=== PATIENT | male | born 1990 | race Caucasian/White ===

== ENCOUNTER 2020-01-30 03:38 | Emergency (ER) | payer BC, SELFPAY ==
--- NOTE | ~2020-01-30 | XR_ITS ---
EXAMINATION: CT abdomen pelvis wo con, XR abdomen/kub 1V DATE: 01/30/2020 04:06 (accession [id number]), 01/30/2020 04:29 (accession [id number]) INDICATION: Left flank pain TECHNIQUE: Computed tomography (CT) of the abdomen and pelvis was performed without intravenous contr ast. Automated exposure control and iterative reconstruction technique were employed. Exam dose: 131 7.67 mGy-cm total exam DLP. COMPARISON: 05/11/2017 CT abdomen pelvis FINDINGS: There is a 2 mm distal left ureteral calculus with proximal moderate left hydroureteronephr osis. No other urinary tract calculus. The distal left ureteral calculus is not detected on plain rad iographic examination. Diffuse hepatic steatosis. Splenomegaly. No hepatic, splenic, pancreatic, adrenal or renal space-occupying mass lesion is evident. The adrenal glands are normal. Normal caliber of the abdominal aorta. No intraperitoneal or retroperitoneal or pelvic mass lesion or adenopathy or ascites. Normal appendix. No bowel obstruction or intraperitoneal free air. The urinary bladder is evacuated. Included skeletal structures are unremarkable. IMPRESSION: 2 mm distal left ureteral radiographically occult calculus with proximal mild left hydro ureteronephrosis Hepatic steatosis Splenomegaly Reviewed, dictated and finalized at Location . Reviewed, dictated and finalized at location A. IMPRESSION: 2 mm distal left ureteral radiographically occult calculus with pr oximal mild left hydroureteronephrosis Hepatic steatosis Splenomegaly
[2020-01-30 03:42] VITALS: BP 153/110; PULSE 101; RESP 20; TEMP 36.4; O2SAT 100
--- NOTE | 2020-01-30 03:53 | ED.GENADULT ---
HPI - General Adult General Chief complaint: Abdominal Pain Stated complaint: L Flank Pain Time Seen by Provider: 01/30/20 03:43 Source: patient Mode of arrival: ambulatory Limitations: no limitations History of Present Illness HPI narrative: Patient is a 29-year-old male with a history of nephrolithiasis who presents for evaluation of left flank pain. Patient reports a 10-hour history of worsening left-sided flank pain, initially dull and aching, manageable at home with oral pain medication, but pain has progressed early this morning to be more severe in nature in the left flank. No radiation of pain to the testicle or suprapubic area. Patient reports nausea and 2 episodes of nonbloody, nonbilious emesis. No fever or chills. No upper abdominal pain or chest pain. Patient reports a history of nephrolithiasis, states he has been taking Flomax and pain medication at home without much relief. Patient does not currently follow with a urologist. Related Data Allergies Allergy/AdvReac Type Severity Reaction Status Date / Time No Known Allergies Allergy Unverified 01/30/20 03:45 Review of Systems Review of Systems: Narrative: CONSTITUTIONAL: Denies fever, chills, or sweats. CARDIOVASCULAR: Denies chest pain, palpitations, or edema. RESPIRATORY: Denies cough or dyspnea. GASTROINTESTINAL: Reports left flank pain, nausea and vomiting GENITOURINARY: Reports frequency, hesitancy, denies hematuria or dysuria SKIN: Denies rash or itching. MUSCULOSKELETAL: Reports left flank pain NEUROLOGIC: Denies headache, numbness, or weakness. COUNT INCLUDES THE [facility] Past Medical History Medical History (Updated 01/30/20 @ 05:55 by Swathi Arrieta MD) Nephrolithiasis Surgical History Surgical History (Updated 01/30/20 @ 03:57 by Swathi Arrieta MD) No pertinent past surgical history Social History Social History (Updated 01/30/20 @ 03:57 by Swathi Arrieta MD) Smoking status: Never smoker Alcohol intake: never Substance use: never Living arrangements: with family Gender identity (if verbalized by the patient): Male Exam Narrative: Exam Narrative: GENERAL: Awake, alert, conversant, mildly uncomfortable. HEAD: Normocephalic, atraumatic. EYES: PERRLA and EOMI. ENT: Nares clear, no rhinorrhea or epistaxis. Mucous membranes moist. NECK: Supple. CHEST: No respiratory distress, breathing even and non labored HEART: Regular rate, sinus rhythm ABDOMEN:Non distended, non tender, no suprapubic tenderness, positive left leg tenderness EXTREMITIES: Normal range of motion. No edema. SKIN: Warm, dry, no rash. No vesicles present NEURO:No focal deficits. Alert and oriented x3 Course Vital Signs Vital signs: Vital Signs Temperature 36.4 C 01/30/20 03:42 Pulse Rate 101 H 01/30/20 03:42 Respiratory Rate 20 01/30/20 03:42 Blood Pressure 153/110 H 01/30/20 03:42 Pulse Oximetry 100 01/30/20 03:42 Temperature 36.4 C 01/30/20 03:42 Pulse Rate 101 H 01/30/20 03:42 Respiratory Rate 20 01/30/20 03:42 Blood Pressure 153/110 H 01/30/20 03:42 Pulse Oximetry 100 01/30/20 03:42 Medical Decision Making MDM Narrative Medical decision making narrative: Patient presented for evaluation of left flank pain in the setting of history of nephrolithiasis. At the time of initial assessment, ABCs are intact and vital signs are stable. Patient with hypertension, also on quite a bit of pain at the time of assessment. Patient with left flank pain. No UTI. There is hematuria. Patient has mild chronic kidney disease with a creatinine of 1.7 without a previous baseline. Patient with mild leukocytosis. CT scan shows left 2 mm UVJ stone with associated hydronephrosis and stranding. Patient was given IV fluids, pain medication with much improvement in his symptoms, his repeat creatinine showed no improvement with hydration perhaps this is his baseline, patient has not seen a primary care physician in quite some time, and I would suspect t
[2020-01-30] MEDS: ONDANSETRON INJ 4 MG/2 ML VIAL IV PUSH (04:15)
[2020-01-30] MEDS: SODIUM CHLORIDE 0.9% IV 1,000 ML 999 ML IV CONT (04:15)
[2020-01-30] MEDS: MORPHINE SULFATE 4 MG/ML INJ IV PUSH (04:15)
[2020-01-30 04:27] LABS: Basophils Absolute Auto 0.1 K/mm3 (0.0-0.1); Basophils Percent Auto 0.4 % (0.2-1.2); Eosinophils Absolute Auto 0.1 K/mm3 (0-0.3); Eosinophils Percent Auto 0.5 % (0-4.4); Hematocrit 45.5 % (42.0-52.0); Hemoglobin 15.7 g/dL (14.0-18.0); Immature Granulocyte Absolute 0.06 K/mm3 (0.00-0.031); Immature Granulocyte Percent A 0.4 % (0-0.5); Lymphocytes Absolute Auto 1.64 K/mm3 (0.9-3.2); Lymphocytes Percent Auto 11.8 % (18.3-44.2); Mean Corpuscular HGB Conc 34.5 g/dl (32-36); Mean Corpuscular Hemoglobin 30.3 pg (26-34); Mean Corpuscular Volume 87.7 fl (80-100); Mean Platelet Volume 9.3 fl (7.4-10.4); Monocytes Absolute Auto 0.9 K/mm3 (0.1-0.6); Monocytes Percent Auto 6.2 % (2.6-8.5); Neutrophils Absolute Auto 11.2 K/mm3 (1.3-6.7); Neutrophils Percent Auto 80.7 % (45.5-73.1); Platelet Count Result 308 k/mm3 (150-375); Red Blood Count 5.19 M/mm3 (4.6-6.20); Red Cell Distribution Width 11.8 % (11.5-14.5); White Blood Count 13.9 K/mm3 (4.5-10.0)
[2020-01-30 04:33] LABS: Add Urine Microscopic? YES; Appearance Urine Clear (Clear); Bilirubin Urine Negative (Negative); Blood Urine 2+ (Negative); Color Urine Yellow (Yellow); Glucose Urine UA Negative (Negative); Ketones Urine Negative (Negative); Leukocyte Esterase Ur Negative LEU/UL (Negative); Mucus Urine Rare /lpf; Nitrate Urine Negative (Negative); Protein Urine Negative (Negative); Specific Grav Ur 1.021 (1.001-1.035); Squamous Epithelial Cell Urine Occasional /hpf (Few); Urobilinogen Urine Negative mg/dL (<2.0); WBC Urine 0-3 /hpf
[2020-01-30 04:48] LABS: Blood Urea Nitrogen 15 mg/dL (9-20); Calcium 8.9 mg/dL (8.4-10.2); Carbon Dioxide 23 mmol/L (22-30); Chloride 103 mmol/L (98-107); Estimated Glomerular Filt Rate 48; Glucose 128 mg/dL (75-110); Potassium 4.2 mmol/L (3.4-5.0); Sodium 136 mmol/L (137-145)
[2020-01-30 05:35] LABS: Estimated Glomerular Filt Rate 48
[2020-01-30 06:03] VITALS: BP 159/99; PULSE 70; RESP 20; O2SAT 98
== END 2020-01-30 06:04 | disposition home or self-care (01) ==
PROVIDERS: Emergency Provider Emergency Medicine
DX: N13.2 Hydronephrosis with renal and ureteral calculous obstruction (principal); K76.0 Fatty (change of) liver, not elsewhere classified; R16.1 Splenomegaly, not elsewhere classified
CPT/HCPCS: 36415; 74018; 74176; 80048; 81001; 82565; 85025; 96365; 96375; 99284; A9270; J0131; J2270; J2405; J7030

== ENCOUNTER 2021-10-15 19:37 | Emergency (ER) | payer SELFPAY ==
[2021-10-15 19:55] VITALS: BP 128/87; PULSE 99; RESP 18; TEMP 36.2; O2SAT 99
--- NOTE | 2021-10-15 21:08 | PC.NURSE ---
Pt exits ED prior to seeing provider, no sign of any kind of distress at this time.
== END 2021-10-16 04:34 | disposition left against medical advice (07) ==
LOC: ANHED 21:16
DX: R10.9 Unspecified abdominal pain (principal)
CPT/HCPCS: 99199

== ENCOUNTER 2021-12-26 03:24 | Emergency (ER) | payer SELFPAY ==
--- NOTE | ~2021-12-26 | XR_ITS ---
EXAMINATION: XR abdomen/kub 1V DATE: 12/26/2021 04:55 INDICATION: Kidney stone. TECHNIQUE: A supine view of the abdomen on 3 radiographs was obtained. COMPARISON: CT abdomen and pelvis 12/26/2021 FINDINGS: There are no dilated loops of bowel. There is no urolithiasis. IMPRESSION: 1. No urolithiasis. Reviewed, dictated and finalized at location A. IMPRESSION: 1. No urolithiasis.
--- NOTE | ~2021-12-26 | CT_ITS ---
EXAMINATION: CT abdomen pelvis wo con DATE: 12/26/2021 05:04 INDICATION: Right flank pain. TECHNIQUE: Computed tomography (CT) of the abdomen and pelvis was performed without intravenous contr ast. Automated exposure control and iterative reconstruction technique were employed. The dose-length product was 1447.69 mGy-cm. COMPARISON: CT abdomen and pelvis 01/30/2020 FINDINGS: The visualized portions of the lung bases are clear without pneumonia or pleural effusion. The heart size is normal. No pericardial effusion. There is diffuse hepatic steatosis. The spleen, ga llbladder, pancreas, adrenal glands, and kidneys are normal. There is no urolithiasis. There is a lef t inguinal hernia containing fat. There are no dilated loops of bowel. The appendix is normal. There are no pathologically enlarged lymph nodes. There is no free intraperitoneal fluid. There is mild tho racolumbar spondylosis. IMPRESSION: 1. Diffuse hepatic steatosis. Reviewed, dictated and finalized at location A.
[2021-12-26 03:25] VITALS: BP 111/96; PULSE 98; RESP 18; TEMP 37.2; O2SAT 94
[2021-12-26 03:47] LABS: Basophils Absolute Auto 0.1 K/mm3 (0.0-0.1); Basophils Percent Auto 1.1 % (0.2-1.2); Eosinophils Absolute Auto 0.4 K/mm3 (0-0.3); Eosinophils Percent Auto 3.8 % (0-4.4); Hematocrit 47.3 % (42.0-52.0); Hemoglobin 16.5 g/dL (14.0-18.0); Immature Granulocyte Absolute 0.05 K/mm3 (0.00-0.031); Immature Granulocyte Percent A 0.5 % (0-0.5); Lymphocytes Absolute Auto 3.16 K/mm3 (0.9-3.2); Lymphocytes Percent Auto 29.8 % (18.3-44.2); Mean Corpuscular HGB Conc 34.9 g/dl (32-36); Mean Corpuscular Hemoglobin 31.4 pg (26-34); Mean Corpuscular Volume 89.9 fl (80-100); Mean Platelet Volume 9.5 fl (7.4-10.4); Monocytes Absolute Auto 0.6 K/mm3 (0.1-0.6); Monocytes Percent Auto 5.5 % (2.6-8.5); Neutrophils Absolute Auto 6.3 K/mm3 (1.3-6.7); Neutrophils Percent Auto 59.3 % (45.5-73.1); Platelet Count Result 308 k/mm3 (150-375); Red Blood Count 5.26 M/mm3 (4.6-6.20); Red Cell Distribution Width 12.2 % (11.5-14.5); White Blood Count 10.6 K/mm3 (4.5-10.0)
--- NOTE | 2021-12-26 03:47 | ED.ABDPAIN ---
HPI - Abdominal Pain General Chief Complaint: Abdominal Pain Stated Complaint: kidney stone Time Seen by Provider: 12/26/21 03:41 Source: patient and RN notes reviewed Mode of arrival: ambulatory Limitations: no limitations History of Present Illness HPI narrative: This is a 31 year old male with history of kidney stones who presents for evaluation of right flank pain. He developed pain approximately 1 hours. He states his pain is located right lower abdomen and it wraps around to his right flank. His pain was initially severe and he was unable to get comfortable. He also had associated nausea, vomiting and dark urine. His pain has decreased down to 4/10 currently. HE denies fever, chills or dysuria. HE does state pain feels similar to his previous episode with a kidney stone. Related Data Allergies Allergy/AdvReac Type Severity Reaction Status Date / Time No Known Allergies Allergy Verified 12/26/21 03:27 Review of Systems Review of Systems: All systems reviewed & are unremarkable except as noted in HPI and below PMFSH Past Medical History Medical History (Updated 12/26/21 @ 07:03 by Kia Varela MD) Nephrolithiasis Surgical History Surgical History (Updated 01/30/20 @ 03:57 by Swathi Arrieta MD) No pertinent past surgical history Social History Social History (Updated 01/30/20 @ 03:57 by Swathi Arrieta MD) Smoking status: Never smoker Alcohol intake: never Substance use: never Gender identity (if verbalized by the patient): Male Exam Const: General: no acute distress and alert Orientation/consciousness: patient oriented x3 Eyes: EOM: EOMs intact bilaterally Chest: Chest palpation & inspection: normal inspection of the chest Resp: Effort & Inspection: normal respiratory effort and no retractions Auscultation: clear to auscultation bilaterally Cardio: Rate: regular rate Rhythm: abnormal rhythm Heart sounds: no murmurs GI: GI Palp: Yes Soft to palpation, No Tenderness to palpation present (GI) and No Guarding due to palpation present (GI) Auscultation: normal bowel sounds : General: Yes no CVA tenderness Skin: General skin exam: normal color Rashes: no rashes Neuro: General: patient oriented x3, moves all extremities and CN's II-XI intact bilaterally Psych: Mental Status: mental status grossly normal Affect: normal affect Course Reevaluation(s) Reevaluation #1: PAtient has been resting comfortably. He states he feels better and his pain has resolved. Ct was unremarkable so he likely passed kidney stone. Date: 12/26/21 Time: 06:58 Vital Signs Vital signs: Vital Signs Temperature 99.0 F 12/26/21 03:25 Pulse Rate 98 12/26/21 03:25 Respiratory Rate 18 12/26/21 03:25 Blood Pressure 111/96 H 12/26/21 03:25 Pulse Oximetry 94 12/26/21 03:25 Temperature 99.0 F 12/26/21 03:25 Pulse Rate 75 12/26/21 06:00 Respiratory Rate 16 12/26/21 06:00 Blood Pressure 121/66 12/26/21 06:00 Pulse Oximetry 97 12/26/21 06:00 MDM - Abdominal Pain Lab Data Attestation: I reviewed the patient's lab results. Result diagrams: 12/26/21 03:36 12/26/21 03:36 Labs: Lab Results 12/26/21 12/26/21 12/26/21 Range/Units 03:36 03:36 03:54 WBC 10.6 H (4.5-10.0) K/mm3 RBC 5.26 (4.6-6.20) M/mm3 Hgb 16.5 (14.0-18.0) g/dL Hct 47.3 (42.0-52.0) % MCV 89.9 (80-100) fl MCH 31.4 (26-34) pg MCHC 34.9 (32-36) g/dl RDW 12.2 (11.5-14.5) % Plt Count 308 (150-375) k/mm3 MPV 9.5 (7.4-10.4) fl Immature Gran % (Auto) 0.5 (0-0.5) % Neut % (Auto) 59.3 (45.5-73.1) % Lymph % (Auto) 29.8 (18.3-44.2) % Preston % (Auto) 5.5 (2.6-8.5) % Eos % (Auto) 3.8 (0-4.4) % Baso % (Auto) 1.1 (0.2-1.2) % Lymph # (Auto) 3.16 (0.9-3.2) K/mm3 Preston # (Auto) 0.6 (0.1-0.6) K/mm3 Eos # (Auto) 0.4 H (0-0.3) K/mm3 Baso # (Auto) 0.1 (0.0-0.1) K/mm3 Abs Immat
[2021-12-26] MEDS: SODIUM CHLORIDE 0.9% IV 1,000 ML 999 ML IV CONT (03:53)
[2021-12-26] MEDS: ONDANSETRON INJ 4 MG/2 ML VIAL IV PUSH (03:53)
[2021-12-26 04:00] LABS: Alanine Aminotransferase 62 U/L (4-50); Albumin Level 4.4 g/dL (3.5-5.1); Alkaline Phosphatase 100 U/L (38-126); Anion Gap 8 mmol/L (8-16); Aspartate Amino Transferase 36 U/L (17-59); Bilirubin,Total 0.4 mg/dL (0.2-1.3); Blood Urea Nitrogen 13 mg/dL (9-20); Calcium 8.7 mg/dL (8.4-10.2); Carbon Dioxide 23 mmol/L (22-30); Chloride 106 mmol/L (98-107); Estimated CRCL calculation 115 ml/min; Estimated Glomerular Filt Rate > 60; Glucose 130 mg/dL (65-110); Lipase 53 U/L (23-300); Potassium 3.6 mmol/L (3.4-5.0); Sodium 137 mmol/L (137-145)
[2021-12-26 04:13] LABS: Add Urine Microscopic? YES; Appearance Urine Cloudy (Clear); Bacteria Urine Trace /hpf; Bilirubin Urine Negative (Negative); Blood Urine 3+ (Negative); Color Urine Yellow (Yellow); Glucose Urine UA Negative (Negative); Ketones Urine Negative (Negative); Leukocyte Esterase Ur Negative LEU/UL (Negative); Mucus Urine Few /lpf; Nitrate Urine Negative (Negative); Protein Urine Negative (Negative); RBC Urine >75 /hpf (0-2); Specific Grav Ur 1.019 (1.001-1.035); Squamous Epithelial Cell Urine Rare /hpf (Few); Urobilinogen Urine Negative mg/dL (<2.0)
[2021-12-26 06:00] VITALS: BP 121/66; PULSE 75; RESP 16; O2SAT 97
[2021-12-26 07:10] VITALS: BP 128/73; PULSE 70; RESP 18; O2SAT 97
== END 2021-12-26 07:11 | disposition home or self-care (01) ==
PROVIDERS: Emergency Provider General Practice
DX: N23 Unspecified renal colic (principal)
CPT/HCPCS: 36415; 74018; 74176; 80053; 81001; 83690; 85025; 96361; 96374; 99284; J2405; J7030

== ENCOUNTER 2023-09-26 17:34 | Emergency (ER) | payer BC, SELFPAY ==
[2023-09-26 17:47] VITALS: BP 151/84; PULSE 86; RESP 16; TEMP 36.9; O2SAT 97
[2023-09-26 17:49] VITALS: BP 151/84; PULSE 86; RESP 16; TEMP 36.9; O2SAT 97
--- NOTE | 2023-09-26 18:08 | ED.BACK ---
HPI - Back Pain/Injury General Chief Complaint: Back Pain/Injury Stated Complaint: Back Pain Time Seen by Provider: 09/26/23 18:08 Source: patient Mode of arrival: ambulatory Limitations: no limitations History of Present Illness HPI Narrative: 33-year-old male presented for complaint of left lower back pain for 1 week. He endorses the pain radiates from the back to posterior hip to the back of the knee. 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 Not taking anything for pain. He denies numbness tingling, weakness of the extremity. States pain can be worse when standing or lying down. Denies change in gait, saddle paresthesia or loss of bowel or bladder. Related Data Home Medications Medication Instructions Recorded Confirmed acetaminophen 500 mg capsule 500 mg PO Q6H fever or pain 09/26/23 Allergies Allergy/AdvReac Type Severity Reaction Status Date / Time No Known Allergies Allergy Verified 09/26/23 17:49 Review of Systems Review of Systems: CONSTITUTIONAL: Denies body aches, fever, chills EYES: Denies visual changes CARDIOVASCULAR: Denies chest pain, palpitations, or edema. RESPIRATORY: Denies cough or dyspnea. GASTROINTESTINAL: Denies abdominal pain, nausea, vomiting, or diarrhea. SKIN: Denies rash, itching, or wounds. MUSCULOSKELETAL: reports back pain NEUROLOGIC: Denies headache, numbness, tingling, or weakness. All systems reviewed & are unremarkable except as noted in HPI and below PMFSH Past Medical History Medical History Nephrolithiasis Surgical History Surgical History No pertinent past surgical history Family History Family History Mother Hypertension Grandparent Pancreatic cancer Social History Social History Smoking status: Never smoker Alcohol intake: never Substance use: never Living arrangements: with family Gender identity (if verbalized by the patient): Male Comments At time of signature, I have reviewed and agree with nursing past medical, surgical, social and family history unless otherwise noted. Please see nursing chart for further information. There is no relevant family history pertinent to the presenting complaint Exam Narrative: GENERAL: Well-appearing, well-nourished, and in no acute distress. CHEST: Speaks in full sentences. No respiratory distress. HEART: Regular rate and rhythm. Normal and equal peripheral pulses. MUSC: No Vertebral point tenderness, minimally tender left low back. BLEs with normal strength and sensation, normal range of motion No open wounds, or obvious deformity; pulse palpable and equal bilaterally, skin warm, dry, pink. Capillary refill less than 3 seconds. Gait steady. SKIN: Warm, dry, no rash. NEURO: Alert and oriented x3. Back/Spine/Pelvis: Back/spine/pelvis image: 1. location of low back pain Course Course Emergency Course: Patient is aware of diagnosis, understands and agrees to treatment plan. Anticipatory guidance given. Patient agrees to follow-up as directed and is aware of reasons to seek care at the emergency department. Portions of this record may have been created with voice recognition software Level of Care: Express Care Visit Vital Signs Vital signs: Vital Signs Temperature 98.5 F 09/26/23 17:47 Pulse Rate 86 09/26/23 17:47 Respiratory Rate 16 09/26/23 17:47 Blood Pressure 151/84 H 09/26/23 17:47 Pulse Oximetry 97 09/26/23 17:47 Oxygen Delivery Room Air 09/26/23 17:47 Temperature 98.5 F 09/26/23 17:49 Pulse Rate 86 09/26/23 17:49 Respiratory Rate 16 09/26/23 17:49 Blood Pressure 151/84 H 09/26/23 17:49 Pulse Oximetry 97 09/26/23 17:49 Oxygen Delivery Room Air 09/26/23 17:49 Reviewed
== END 2023-09-26 18:22 | disposition home or self-care (01) ==
PROVIDERS: Emergency Provider Nurse Practitioner Family
DX: M54.16 Radiculopathy, lumbar region (principal)
CPT/HCPCS: 99213; G0463

== ENCOUNTER 2023-10-21 15:18 | Outpatient (CLI) | payer BC, SELFPAY ==
[2023-10-21 16:12] LABS: Basophils Absolute Auto 0.1 K/mm3 (0.0-0.1); Basophils Percent Auto 1.2 % (0.2-1.2); Eosinophils Absolute Auto 0.5 K/mm3 (0-0.3); Eosinophils Percent Auto 5.5 % (0-4.4); Hematocrit 47.7 % (42.0-52.0); Hemoglobin 16.5 g/dL (14.0-18.0); Immature Granulocyte Absolute 0.04 K/mm3 (0.00-0.031); Immature Granulocyte Percent A 0.5 % (0-0.5); Lymphocytes Percent Auto 32.7 % (18.3-44.2); Mean Corpuscular HGB Conc 34.6 g/dl (32-36); Mean Corpuscular Hemoglobin 31.1 pg (26-34); Mean Platelet Volume 9.2 fl (7.4-10.4); Monocytes Absolute Auto 0.5 K/mm3 (0.1-0.6); Monocytes Percent Auto 6.3 % (2.6-8.5); Neutrophils Absolute Auto 4.6 K/mm3 (1.3-6.7); Neutrophils Percent Auto 53.8 % (45.5-73.1); Platelet Count Result 279 k/mm3 (150-375); White Blood Count 8.6 K/mm3 (4.5-10.0)
[2023-10-21 16:22] LABS: Alanine Aminotransferase 90 U/L (6-50); Albumin Level 4.5 g/dL (3.5-5.1); Alkaline Phosphatase 92 U/L (38-126); Anion Gap 8 mmol/L (8-16); Aspartate Amino Transferase 45 U/L (17-59); Bilirubin,Total 0.7 mg/dL (0.2-1.3); Blood Urea Nitrogen 14 mg/dL (9-20); Calcium 9.4 mg/dL (8.4-10.2); Carbon Dioxide 27 mmol/L (22-30); Chloride 105 mmol/L (98-107); Cholesterol 202 mg/dL (0-200); Estimated Glomerular Filt Rate > 60; Glucose 82 mg/dL (65-110); HDL Direct 30 mg/dL; Sodium 140 mmol/L (137-145); Triglycerides 163 mg/dL (<150)
[2023-10-21 16:33] LABS: LDL Cholesterol Direct 132 mg/dL
== END 2023-10-21 15:19 | disposition home or self-care (01) ==
LOC: ANHLAB 15:19
PROVIDERS: PCP Nurse Practitioner Family; Visit Provider Nurse Practitioner Family
DX: I10 Essential (primary) hypertension (principal)
CPT/HCPCS: 36415; 80053; 80061; 84443; 85025

== ENCOUNTER 2025-04-02 08:05 | Outpatient (CLI) | payer BC, SELFPAY ==
--- OUTSIDE RECORDS SUMMARY | 2025-04-02 08:09 | XMS_ITS | Continuity of Care Document ---
Author Organization [facility] Address [id number] [place] [address] [address] [place] [address] Phone Care Team Providers Care Carrot Buncher Name Role Phone Greg Bhatt Unavailable Unavailable Advance Directives Directive Yes / No Effective Date File Name No Information Encounters Encounter Description Practice Location Reason(s) For Visit Diagnoses Date Provider Providers Copied on Encounter [facility], [address], [place], [place], [id number], [place] tel:[phone] [facility] No Information Jul-2 0-200 0 Doisy Edward. [address] [facility] , [address], [place], [address], [place]. tel:[phone] Family History Family Member Type Diagnosis Age At Onset No Information Payers Payer name Insurance type Covered democrat ID Authoriza tion(s) No Information Social History Type Description Quantity Date Captured Comments Sex Male Smoking Status No Information Chief Complaint And Reason For Visit No Information Reason For Referral Reason For Referral No Information History Of Present Illness Encounter Date Complaint History Of Prese nt Illness No Information Functional Status Date Functional Assessmen t No Information Instructions Date Instruction Additional Infor mation No Information Assessments Type Assessment Date No Information Patient Care Teams Name Effective Dates (start - stop) Status Members No Information
--- OUTSIDE RECORDS SUMMARY | 2025-04-02 08:09 | XMS_ITS | Referral Summary ---
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
--- OUTSIDE RECORDS SUMMARY | 2025-04-02 08:09 | XMS_ITS | Clinical Summary ---
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 Sexual Orientation Not on file Plan of Treatment Health Maintenance Due Date Last Done Comments Depression Screening 1989 Hepatitis C Screening 1989 DTaP/Tdap/Td Vaccine (2 - Tdap) 2000 11/12/1993 Varicella Vaccines (1 of 2 - 13+ 2-dose series) 2002 Hepatitis B Screening 2007 Regular Well Visit/Exam 18-64 2007 Covid-19 Vaccine (4 - 2023-2 5 season) 2024 08/23/2021, 01/11/2021, 12/18/2020 Influenza Vaccine (Season Ended) 2025 05/29/2013 HPV Vaccines Aged Out No longer eligi ble based on patient's age to complete this topic Pneumococcal vaccine <65 Aged Out No longer eligible based on patient's age to complete this topic Insurance [employer] Care Teams D[employer] Installer Relationship Specialty Start Date End Date Unknown, Notinfile PCP - General 09/30/24
[2025-04-02 08:40] LABS: Hematocrit 47.6 % (42.0-52.0); Hemoglobin 16.3 g/dL (14.0-18.0); Mean Corpuscular HGB Conc 34.2 g/dl (32-36); Mean Corpuscular Hemoglobin 30.3 pg (26-34); Mean Corpuscular Volume 88.5 fl (80-100); Platelet Count Result 286 k/mm3 (150-375); Red Blood Count 5.38 M/mm3 (4.6-6.20); White Blood Count 9.4 K/mm3 (4.5-10.0)
[2025-04-02 08:57] LABS: Alanine Aminotransferase 75 U/L (6-50); Albumin Level 4.4 g/dL (3.5-5.1); Alkaline Phosphatase 87 U/L (38-126); Anion Gap 9 mmol/L (4-12); Aspartate Amino Transferase 43 U/L (17-59); Bilirubin,Total 0.5 mg/dL (0.2-1.3); Blood Urea Nitrogen 14 mg/dL (9-20); Calcium 9.2 mg/dL (8.4-10.2); Carbon Dioxide 21 mmol/L (22-30); Chloride 107 mmol/L (98-107); Cholesterol 178 mg/dL (0-200); Estimated Glomerular Filt Rate > 60; Glucose 87 mg/dL (65-110); HDL Direct 30 mg/dL; Potassium 4.2 mmol/L (3.4-5.0); Sodium 137 mmol/L (137-145); Total Protein 8.1 g/dL (6.3-8.2); Triglycerides 88 mg/dL (<150)
[2025-04-02 10:03] LABS: Thyroid Stimulating Hormone Reflex 1.190 uIU/mL (0.465-4.68)
== END 2025-04-02 08:06 | disposition home or self-care (01) ==
LOC: ANHLAB 08:07
PROVIDERS: PCP Nurse Practitioner Family; Visit Provider Nurse Practitioner Family
DX: E78.2 Mixed hyperlipidemia (principal); I10 Essential (primary) hypertension; K76.0 Fatty (change of) liver, not elsewhere classified; Z11.59 Encounter for screening for other viral diseases
CPT/HCPCS: 36415; 80053; 80061; 84443; 85027; 86803